=== PATIENT | male | born 1950 | race Caucasian/White ===

== ENCOUNTER 2018-05-11 15:28 | Observation (INO) ==
[2018-05-11] MEDS ORDERED: Acetaminophen 325 MG TABLET PO PRN (20:12)
--- NOTE | 2018-05-11 20:12 | Internal Med History&Physical ---
Date of Encounter: 05/12/18 Time of Encounter: 20:09 Internal Medicine - H&P: HPI Chief complaint: chest pain, R sided numbness Admitted From: Home Plans for Post Hospital Care: Home History of present illness: Mr. Calvillo is a 67 year old male with hx of TIA, hx colon CA, renal calculi who presents with CP and right sided weakness. Pt reports that this morning he developed dizziness. He thought he was hypoglycemic. Ate poptarts and drank coffee and shortly after that he developed CP, radiating to left arm associated with feeling clammy. States he also felt as though his food was coming back up and he felt like he was choking. HE tried taking NTG but felt choking sensation. States NTG did help with CP but then he developed a VIVEROS. Reports all his previous cardiac work up was done here at [facility]. Reported his sympsoms to his but then states he lost track of time. Pt reporting transient moment of loss of time. States one moment he was telling his about his symotpms and and asking her to bring him to the hospital and the next moment he was in the hospital. States she is unsure if he passed out. is not at bedside at this time for questioning. States it was probably about 15 to 20 mins and he does not recall the drive to the ED. He was transferred form [facility] WBC 5.6, hgb 14.4, plt 177. Na 140, K 3.6. BUN 12, Cr 1.16. LFT's wnl INR 2.61. Temp 975. BP 117/78, resp 20, pulse 81 saturaiton 99% on RA. A Past Med Surg Social Fam HX - Past Medical History Medical history: arthritis, COPD, coronary artery disease, GERD, TIA, other Additional medical history: hypoglycemia Psychiatric history: anxiety - Past Surgical History Surgical History: cancer surgery, other Additional surgical history: back and neck, heart cath, kidney stones - Social History Smoking Status: 2nd Hand Smoke Exposure Smokeless Tobacco Status: No Alcohol use: none Drug use: none - Family History Father Living Status: Age at : 78 Cause of : PR Internal Medicine - H&P: Meds Baclofen [Lioresal] 10 mg PO TID PRN 05/12/18 [History] Citalopram [CeleXA] 20 mg PO DAILY 05/12/18 [History] Clopidogrel [Plavix] 75 mg PO DAILY 05/12/18 [History] Meclizine [Antivert] 12.5 mg PO BID PRN 05/12/18 [History] Metoprolol Succinate [Toprol Xl] 25 mg PO DAILY 05/12/18 [History] Nitroglycerin [Nitrostat] 0.4 mg SL Q5M PRN 05/12/18 [History] Ranitidine HCl [Acid Supervisor Weaving] 150 mg PO BID 05/12/18 [History] Topiramate [Topamax] 25 mg PO BID 05/12/18 [History] Warfarin [Coumadin] 2.5 mg PO DAILY 05/12/18 [History] 3 Allergy/AdvReac Type Severity Reaction Status Date / Time aspirin [ASA] Allergy Swelling Verified 10/10/17 12:58 of Lip/Tongue/Throat Penicillins Allergy Swelling Verified 10/10/17 12:58 of Lip/Tongue/Throat hydrocodone [From Vicodin] AdvReac Itching Verified 10/10/17 12:58 All Systems PM: A 10-system review of systems was performed and is negative for pertinent findings except as documented above in the HPI. - Constitutional Vitals: Temp Pulse Resp BP Pulse Ox 97.6 F 66 16 92/61 99 05/11/18 18:56 05/11/18 18:56 05/11/18 18:56 05/11/18 18:56 05/11/18 18:56 General appearance: Present: A&O X 3, no acute distress Exam: . - Head Head exam: Present: atraumatic, normocephalic - Eye Eye exam: Present: PERRL, conjuntiva pink, sclera anicteric Pupils: Present: PERRL - Neck Neck exam general surgery: Present: supple, trachea midline. Absent: lymphadenopathy - Respiratory Respiratory exam: Present: CTAB. Absent: accessory muscle use, rales, rhonchi, wheezes - Cardiovascular Cardiovascular exam: Present: RRR, +S1, +S2. Absent: diastolic murmur, gallop, rubs, systolic murmur - GI/Abdominal GI/Abdominal exam: Present: normal bowel sounds, soft, no peritoneal signs. Absent: distended, tenderness - Extremities Exam Extremities exam: Present: warm, radial pulses palpable and symmetrical. Absent : calf tenderness, cyanotic, pedal edema - Neurological Exam Neurological exam: Present: CN II-XII intact, oriented X3, no focal deficits. 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 Underwent cardiac stress test awaiting results Echo ordered Continue with Plavix. Patient is allergic to aspirin as well as beta shelby and statin Nitroglycerin as needed for chest pain Continuous cardiac monitoring Qualifiers: Chest pain type: unspecified Qualified Code(s): R07.9 - Chest pain, unspecified (2) Right sided weakness Current Visit: Yes Status: Acute Assessment and plan: Brain MRI ordered echocardiogram ordered pending results. Awaiting vascular preliminary. Continue with Plavix as well as statin. Allergy to ASA Neurology has been consulted (3) History of seizure Current Visit: Yes Status: Acute Assessment and plan: sz precaution. EEG ordered. Neuro consulted - Time Spent With Patient Total time spent is greater than 50% in coordination of care (as documented) at patient's floor/unit and/or counseling patient: 25 - 35 minutes
[2018-05-11] MEDS ORDERED: Ondansetron 4 MG/2 ML VIAL IVP PRN (20:13)
[2018-05-11] MEDS ORDERED: Nitroglycerin 0.4 MG TAB.SUBL SL PRN (20:13)
[2018-05-11 21:13] LABS: Basophils % 0.5 %; Eosinophils # 0.1 K/mcL (0.0-0.6); Eosinophils % 1.4 %; Hemoglobin 13.7 g/dL (12.9-16.9); Immature Granulocytes % 0.2 % (0-4); Lymphocytes % 31.4 %; Mean Corpuscular HGB Conc 33.4 g/dL (31.6-35.5); Mean Corpuscular Hemoglobin 30.7 pg (28.0-33.3); Mean Corpuscular Volume 91.9 fL (83.0-100.0); Mean Platelet Volume 10.3 fL (9.4-12.4); Monocytes # 0.6 K/mcL (0.0-1.3); Monocytes % 9.2 %; Neutrophils # 3.6 K/mcL (1.6-8.9); Platelet Count 169 K/mcL (140-400); Red Blood Count 4.46 M/mcL (4.19-5.50); Red Cell Distribution Width 13.8 % (11.5-14.5); Segmented Neutrophils % 57.3 %
[2018-05-11 21:35] LABS: BUN/Creatinine Ratio 11 (6-26); Blood Urea Nitrogen 10 mg/dL (8-23); Calcium 9.3 mg/dL (8.6-10.3); Carbon Dioxide 23 mEq/L (23-29); Chloride 110 mEq/L (98-107); Glucose 96 mg/dL (70-105); Osmolality,Calculated 287 (280-300); Potassium 3.7 mEq/L (3.5-5.1); Sodium 139 mEq/L (136-145); eGFR For Non-African Americans > 60 (> 60)
[2018-05-12 02:14] LABS: Basophils % 0.5 %; Eosinophils # 0.1 K/mcL (0.0-0.6); Eosinophils % 1.6 %; Hematocrit 41.4 % (37.5-50.1); Hemoglobin 13.6 g/dL (12.9-16.9); Immature Granulocytes % 0.2 % (0-4); Lymphocytes # 1.9 K/mcL (0.6-4.6); Lymphocytes % 30.5 %; Mean Corpuscular HGB Conc 32.9 g/dL (31.6-35.5); Mean Corpuscular Hemoglobin 30.7 pg (28.0-33.3); Mean Corpuscular Volume 93.5 fL (83.0-100.0); Mean Platelet Volume 10.1 fL (9.4-12.4); Monocytes # 0.7 K/mcL (0.0-1.3); Monocytes % 11.1 %; Neutrophils # 3.5 K/mcL (1.6-8.9); Platelet Count 170 K/mcL (140-400); Red Blood Count 4.43 M/mcL (4.19-5.50); Red Cell Distribution Width 13.8 % (11.5-14.5); Segmented Neutrophils % 56.1 %
[2018-05-12 02:27] LABS: INR 2.7; Prothrombin Time 30.3 Seconds (9.4-12.1)
[2018-05-12 02:33] LABS: Alanine Aminotransferase 10 Units/L (7-52); Albumin 3.5 g/dL (3.5-5.7); Albumin/Globulin Ratio 1.5 (1.1-2.2); Alkaline Phosphatase 52 Units/L (34-104); Aspartate Amino Transferase 13 Units/L (13-39); BUN/Creatinine Ratio 11 (6-26); Bilirubin,Total 0.3 mg/dL (0.3-1.0); Blood Urea Nitrogen 12 mg/dL (8-23); Calcium 9.2 mg/dL (8.6-10.3); Carbon Dioxide 27 mEq/L (23-29); Chloride 109 mEq/L (98-107); Globulin 2.4 g/dL (2.4-3.5); Glucose 106 mg/dL (70-105); Magnesium 2.1 mg/dL (1.6-2.6); Osmolality,Calculated 290 (280-300); Potassium 4.2 mEq/L (3.5-5.1); Sodium 140 mEq/L (136-145); Total Protein 5.9 g/dL (6.4-8.9); eGFR For Non-African Americans > 60 (> 60)
[2018-05-12 02:34] LABS: Chol/HDL Ratio 3.1 (0-4.9); Cholesterol 150 mg/dL (< 200); HDL Cholesterol 48 mg/dL (40-59); LDL Cholesterol,Calculated 82 mg/dL (0-99); Triglycerides 102 mg/dL (< 150)
[2018-05-12 02:35] LABS: Troponin I < 0.03 ng/mL (< 0.04)
--- NOTE | 2018-05-12 10:39 | Internal Med Progress Note ---
Hospitalist Progress Note - Encounter Date of Encounter: 05/12/18 Time of Encounter: 10:39 - Exam Vitals: Temp Pulse Resp BP Pulse Ox 97.9 F 58 19 114/69 100 05/12/18 07:44 05/12/18 07:44 05/12/18 07:44 05/12/18 07:44 05/12/18 07:44 Exam: General appearance: Present: A&O X 3, no acute distress Exam: - Head Head exam: Present: atraumatic, normocephalic - Eye Eye exam: Present: PERRL, conjuntiva pink, sclera anicteric Pupils: Present: PERRL - Neck Neck exam general surgery: Present: supple, trachea midline. Absent: lymphadenopathy - Respiratory Respiratory exam: Present: CTAB. Absent: accessory muscle use, rales, rhonchi, wheezes - Cardiovascular Cardiovascular exam: Present: RRR, +S1, +S2. Absent: diastolic murmur, gallop, rubs, systolic murmur - GI/Abdominal GI/Abdominal exam: Present: normal bowel sounds, soft, no peritoneal signs. Absent: distended, tenderness - Extremities Exam Extremities exam: Present: warm, radial pulses palpable and symmetrical. Absent : calf tenderness, cyanotic, pedal edema - Neurological Exam Neurological exam: Present: CN II-XII intact, oriented X3, no focal deficits. Absent: pronater drift, facial droop, speech deficit - Skin Skin exam: Present: dry, intact - Assessment and Plan (1) Chest pain Current Visit: Yes Status: Acute Assessment and Plan: Presented after experiencing midsternal chest pain nausea diaphoresis and lightheadedness. He also had right-sided facial numbness. 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 Underwent cardiac stress test awaiting results Echo has been completed-pending results Consult cardiology as needed Continue with Plavix patient is allergic to aspirin as well as beta shelby and statin Nitroglycerin as needed for chest pain Continuous cardiac monitoring (2) Right sided weakness Current Visit: Yes Status: Acute Assessment and Plan: 1 he is currently back to baseline however does continue to complain of right- sided facial numbness tingling. Brain MRI ordered echocardiogram ordered pending results. Awaiting vascular preliminary. Continue with Plavix as well as statin Neurology has been consulted (3) History of seizure Current Visit: Yes Status: Acute Assessment and Plan: Pt reporting transient moment of loss of time. States one moment he was telling his about his symotpms and and asking her to bring him to the hospital and the next moment he was in the hospital. States she is unsure if he passed out. is not at bedside at this time for questioning. States it was probably about 15 to 20 mins and he does not recall the drive to the ED. 05/12-neurology has been consulted awaiting recommendations. Continue with Topamax awaiting EEG Continuous seizure precautions DVT Prophylaxis: Anticoagulated on Coumadin - Time Spent with Patient Total time spent is greater than 50% in coordination of care (as documented) at patient's floor/unit and/or counseling patient: Internal Medicine: Result - Labs CBC & Chem 7: 05/12/18 01:58 05/12/18 01:58 Labs: Short CBC 05/11/18 05/12/18 Range/Units 20:46 01:58 WBC 6.2 6.2 (4.3-11.1) K/mcL Hgb 13.7 13.6 (12.9-16.9) g/dL Hct 41.0 41.4 (37.5-50.1) % Plt Count 169 170 (140-400) K/mcL Neutrophils # 3.6 3.5 (1.6-8.9) K/mcL BMP 05/11/18 05/12/18 20:46 01:58 Sodium 139 140 Potassium 3.7 4.2 Chloride 110 H 109 H Carbon Dioxide 23 27 BUN 10 12 Creatinine 0.95 1.11 Glucose 96 106 H Calcium 9.3 9.2 Cardiac Enzymes 05/11/18 05/12/18 Range/Units 20:46 01:58 Troponin I < 0.03 < 0.03 (< 0.04) ng/mL Liver Function 05/12/18 Range/Units 01:58 Total Bilirubin 0.3 (0.3-1.0) mg/dL AST 13 (13-39) Units/L ALT 10 (7-52) Units/L Alkaline Phosphatase 52 (34-104) Units/L Albumin 3.5 (3.5-5.7) g/dL - ABG Interpretation ABG results: PT/INR, D-dimer PT 30.3 Seconds (9.4-12.1) H 05/12/18 01:58 Consult Discharge Plan - Plan Referrals: Dayanna Oh, MICHAEL [Primary Care Provider] - (1) Chest pain Qualifiers: Chest pain type: unspecified Qualified Code(s): R07.9 - Chest pain, unspecified
[2018-05-12] MEDS ORDERED: Nitroglycerin 0.4 MG TAB.SUBL SL PRN (13:37)
[2018-05-12] MEDS ORDERED: *HR* Warfarin 2.5 MG TABLET PO SCH (18:00)
[2018-05-12] MEDS ORDERED: Warfarin perPT PO PRN (18:00)
--- NOTE | 2018-05-12 18:22 | Neurology - Consult Note ---
Date of Encounter: 05/12/18 Time of Encounter: 18:21 Assessment and Plan (1) Dizziness, nonspecific Current Visit: Yes Status: Acute Patient experienced a host of different symptoms prior to admission that I am not able to definitely attributed to a central nervous system process. He did have complaints of right-sided paresthesias. However MRI scan of the brain does not reveal evidence of left-sided ischemia. His blood pressure was 92/61 upon arrival. Perhaps he was presyncopal. He had another of vague generalized symptoms but nothing with any localizing value from a neurologic perspective. I would recommend that we maintain his Topamax 25 mg 2 at bedtime. I will review his EEG study tomorrow. Echocardiogram is pending as well. I would simply recommend maintaining his home medications as they are currently which included his antihypertensives, lipid-lowering agents, Plavix and warfarin. I will reassess him again tomorrow. Recommend maintaining neuro checks per protocol. History of Present Illness HPI: Mr. Calvillo is a 67 year old male who was known to me from my office clinic for essential tremors. However he is hospitalized now secondary to symptoms of chest discomfort, dizziness as well as right face and arm and leg numbness. He states symptoms onset Friday which was yesterday. He felt sick and he also felt generalized weakness. States she felt clammy. He feels much better today. He initially went to [facility] and was transferred here for further assessment. Troponins have been negative 3, carotid Doppler study revealed nonstenotic plaquing. Apparently echocardiogram has been completed and results are pending. MRI scan of the brain has been completed. There is no diffusion deficit to suggest acute infarct. Nonspecific deep matter hyperintensities are identified. Otherwise the MRI was normal. Upon arrival his blood pressure was 92/61 and pulse was 66. 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 However he is had no seizures in 20 years. He takes Topamax 25 mg 2 at bedtime that I prescribed to treat his essential tremors which is helping. Currently he is alert and oriented and comfortable in his bed. Past Med Surg Social Fam HX - Past Medical History Medical history: arthritis, COPD, coronary artery disease, GERD, TIA, other Additional medical history: hypoglycemia Psychiatric history: anxiety - Past Surgical History Surgical History: cancer surgery, other Additional surgical history: back and neck, heart cath, kidney stones - Social History Smoking Status: 2nd Hand Smoke Exposure Smokeless Tobacco Status: No Alcohol use: none Drug use: none - Family History Father Living Status: Age at : 78 Cause of : [place] Medications and Allergies Baclofen [Lioresal] 10 mg PO TID PRN 05/12/18 [History] Citalopram [CeleXA] 20 mg PO DAILY 05/12/18 [History] Clopidogrel [Plavix] 75 mg PO DAILY 05/12/18 [History] Meclizine [Antivert] 12.5 mg PO BID PRN 05/12/18 [History] Metoprolol Succinate [Toprol Xl] 25 mg PO DAILY 05/12/18 [History] Nitroglycerin [Nitrostat] 0.4 mg SL Q5M PRN 05/12/18 [History] Ranitidine HCl [Acid Supervisor Poultry [employer]chery] 150 mg PO BID 05/12/18 [History] Topiramate [Topamax] 25 mg PO BID 05/12/18 [History] Warfarin [Coumadin] 2.5 mg PO DAILY 05/12/18 [History] 3 Allergy/AdvReac Type Severity Reaction Status Date / Time aspirin [ASA] Allergy Swelling Verified 10/10/17 12:58 of Lip/Tongue/Throat Penicillins Allergy Swelling Verified 10/10/17 12:58 of Lip/Tongue/Throat hydrocodone [From Vicodin] AdvReac Itching Verified 10/10/17 12:58 All Systems: The remainder of the systems were reviewed and are negative Review of Systems: The balance of the systems review is negative. Physical Examination - Vital Signs Vital Signs: Initial Vital Signs Temp Pulse Resp BP Pulse Ox 97.6 F 58 17 130/78 100 05/11/18 17:38 05/11/18 17:38 05/11/18 17:38 05/11/18 17:38 05/11/18 17:38 - Neurologic Detailed motor examination: full strength in all major muscle groups Motor examination - right side: 5/5: deltoids, biceps, triceps, wrist flexion, wrist extension, manager of loss prevention operations, hip flexors, tibialis Anterior, quadriceps, toe extension (EHL), plantarflexion Motor examination - left side: 5/5: deltoids, biceps, triceps, wrist flexion, wrist extension, hip flexors, manager of loss prevention operations, quadriceps, tibialis Anterior, toe extension (EHL), plantarflexion Mental Status Examination: awake, alert, oriented to person, oriented to place, oriented to time, follows commands appropriately, answers questions appropriately, no agnosia, no aphasia, no aproxia Cranial nerve examination: PERRL, EOMI, visual swan intact, corneal reflexes brisk symmetrically, sensory to face intact, mastication intact, no facial asymmetry is present, no dysarthria, hearing is intact symmetrically, soft palate elevates bilaterally upon phonation, gag reflex intact, flexes SCM and trapezius muscles symmetrically with full power, tongue protrudes midline, no atrophy or facial fasiculations present Cerebellar examination: no dysmetria, performs finger to nose and heel to chavez symmetrically without ataxia, no gait ataxia, no truncal ataxia, no difficulty with rapid alternating movements Results - Laboratory Findings CBC and BMP: 05/12/18 01:58 05/12/18 01:58 Abnormal lab findings: Abnormal lab results PT 30.3 Seconds (9.4-12.1) H 05/12/18 01:58 Chloride 109 mEq/L (98-107) H 05/12/18 01:58 Glucose 106 mg/dL (70-105) H 05/12/18 01:58 Serum Total Protein 5.9 g/dL (6.4-8.9) L 05/12/18 01:58 Consult Discharge Plan - Plan Referrals: Triny Victor MD [Partnered Physician] - 06/05/18 9:15 am Dayanna Oh CNP [Primary Care Provider] -
--- NOTE | 2018-05-12 18:41 | EEG/EMG/Oth Biometrics Report ---
EEG Procedure Report Date of procedure: 05/12/18 EEG Procedure: Routine EEG Procedure Note: This is a report of a 21 channel bipolar and referential montage EEG. A posterior dominant rhythm consists of low-voltage beta frequencies. This rhythm attenuates symmetrically with eye opening. Hyperventilation is not performed in recording. There is no sleep architecture identified during the study. Photic stimulations performed and does not produce a symmetric driving response. The EKG rhythm strip reveals sinus bradycardia at 54 bpm. Impressions: This EEG recording is within normal limits. There is no evidence of epileptiform activity identified during the study. Comment: A normal EEG does not preclude a diagnosis of seizure or epilepsy. If the clinical suspicion for seizure activity is high, serial EEGs or perhaps a prolonged recording may increase the yield. Beta frequencies are indeed recognized as a normal variant however may also be reflective of a host of metabolic conditions, anxiety and medication effect. Also sinus bradycardia is identified during the study. Please correlate clinically.
--- NOTE | 2018-05-12 19:14 | Electrocardiograph Report ---
[place] [id number] Test Date: 2018-05-12 Pat Name: Lorrie Calvillo Department: 113 Room: 3B Gender: M [place] Attendant: VICKY : 1950 Requested By: Ketty Richardson Order Number: [id number] Reading MD: Glenn Chaves Measurements Intervals [place] Rate: 53 P: 42 KS: 149 QRS: 44 QRSD: 111 T: 45 QT: 426 QTc: 408 Interpretive Statements SINUS BRADYCARDIA IVCD Electronically Signed On 05-12-2018 19:12:47 EDT by Glenn Chaves
[2018-05-12] MEDS: Topiramate 25 MG TABLET PO SCH (22:04)
[2018-05-13 04:55] LABS: INR 2.3; Prothrombin Time 26.3 Seconds (9.4-12.1)
[2018-05-13 05:04] LABS: BUN/Creatinine Ratio 19 (6-26); Basophils % 0.5 %; Blood Urea Nitrogen 19 mg/dL (8-23); Calcium 9.8 mg/dL (8.6-10.3); Carbon Dioxide 25 mEq/L (23-29); Chloride 108 mEq/L (98-107); Eosinophils # 0.1 K/mcL (0.0-0.6); Eosinophils % 1.5 %; Glucose 110 mg/dL (70-105); Hematocrit 44.7 % (37.5-50.1); Hemoglobin 14.6 g/dL (12.9-16.9); Immature Granulocytes % 1.1 % (0-4); Lymphocytes # 2.2 K/mcL (0.6-4.6); Lymphocytes % 33.3 %; Mean Corpuscular HGB Conc 32.7 g/dL (31.6-35.5); Mean Corpuscular Hemoglobin 31.1 pg (28.0-33.3); Mean Corpuscular Volume 95.1 fL (83.0-100.0); Mean Platelet Volume 10.9 fL (9.4-12.4); Monocytes # 0.7 K/mcL (0.0-1.3); Monocytes % 10.9 %; Neutrophils # 3.5 K/mcL (1.6-8.9); Osmolality,Calculated 289 (280-300); Platelet Count 171 K/mcL (140-400); Red Cell Distribution Width 13.8 % (11.5-14.5); Segmented Neutrophils % 52.7 %; Sodium 138 mEq/L (136-145); eGFR For Non-African Americans > 60 (> 60)
[2018-05-13] MEDS ORDERED: Metoprolol XL (24 HR) Succ 25 MG TAB.ER.24H PO SCH (09:00)
[2018-05-13] MEDS: Topiramate 25 MG TABLET PO SCH (09:05)
--- NOTE | 2018-05-13 10:56 | Neurology Progress Note ---
Date of Encounter: 05/13/18 Time of Encounter: 10:53 Assessment and Plan (1) Dizziness, nonspecific Current Visit: Yes Status: Acute At this juncture I am unable to identify any specific central nervous system process that would explain the symptoms leading up to his admission. No evidence of stroke or cerebral ischemia are present. EEG was normal I am doubtful of seizure activity. One consideration may be the metoprolol. His blood pressure and pulse have been on the low side for the duration of his admission. Otherwise I will reevaluate him at your request. Consider cardiac evaluation or at least echocardiogram. Subjective Interval history: Chart review, patient seen and examined. He has no acute distress. In fact he is anxious for discharge and threatening to leave AMA. Denies any further symptoms of dizziness, numbness or paresthesias or weakness. Neurologic workup has been negative. EEG was negative, MRI was negative. Carotid Doppler was negative. Not certain that an echocardiogram has been ordered. His blood pressure and pulse had been on the low side for the duration of his admission. Objective - Constitutional Vitals: Temp Pulse Resp BP Pulse Ox 97.9 F 68 18 120/78 98 05/13/18 07:44 05/13/18 07:44 05/13/18 07:44 05/13/18 07:44 05/13/18 07:44 - Neurological Exam Motor Examination: Present: full strength in all major muscle groups Motor examination - right side: 5/5: deltoids, biceps, triceps, wrist flexion, wrist extension, test clerk, hip flexors, tibialis Anterior, quadriceps, toe extension (EHL), plantarflexion Motor examination - left side: 5/5: deltoids, biceps, triceps, wrist flexion, wrist extension, hip flexors, test clerk, quadriceps, tibialis Anterior, toe extension (EHL), plantarflexion Sensation intact: Present: intact Mental Status Examination: Present: awake, alert, oriented to person, oriented to place, oriented to time, follows commands appropriately, answers questions appropriately, no agnosia, no aphasia, no aproxia Cranial nerve examination: Present: PERRL, EOMI, visual swan intact, corneal reflexes brisk symmetrically, sensory to face intact, mastication intact, no facial asymmetry is present, no dysarthria, hearing is intact symmetrically, soft palate elevates bilaterally upon phonation, gag reflex intact, flexes SCM and trapezius muscles symmetrically with full power, tongue protrudes midline, no atrophy or facial fasiculations present Cerebellar examination: Present: no dysmetria, performs finger to nose and heel to chavez symmetrically without ataxia, no gait ataxia, no truncal ataxia, no difficulty with rapid alternating movements Results - Laboratory Findings CBC and BMP: 05/13/18 03:59 05/13/18 03:59 Abnormal lab findings: Abnormal lab results PT 26.3 Seconds (9.4-12.1) H 05/13/18 03:59 Chloride 108 mEq/L (98-107) H 05/13/18 03:59 Glucose 110 mg/dL (70-105) H 05/13/18 03:59 Serum Total Protein 5.9 g/dL (6.4-8.9) L 05/12/18 01:58 Consult Discharge Plan - Plan Referrals: Triny Victor MD [Partnered Physician] - 06/05/18 9:15 am Dayanna Oh CNP [Primary Care Provider] -
--- NOTE | 2018-05-13 14:42 | Discharge Summary ---
- NOTES TO OUTPATIENT PROVIDER Notes to Outpatient Provider: Decrease metoprolol down to 12.5 due to hypotension-advised to follow up with cardiology Orders not resulted at time of discharge: Pending orders 05/12/18 04:00 Urinalysis reflex Microscopic [URIN] AM 0400 05/14/18 04:00 INR/PT [Prothrombin Time INR] [COAG] AM 0400 05/15/18 04:00 INR/PT [Prothrombin Time INR] [COAG] AM 0400 05/16/18 04:00 INR/PT [Prothrombin Time INR] [COAG] AM 0400 05/17/18 04:00 INR/PT [Prothrombin Time INR] [COAG] AM 0400 Date of Encounter: 05/13/18 Time of Encounter: 14:39 - Discharge Diagnosis (1) Chest pain Priority: Primary Status: Acute Qualifiers: Chest pain type: unspecified Qualified Code(s): R07.9 - Chest pain, unspecified (2) Right sided weakness Priority: Primary Status: Acute (3) History of seizure Priority: Secondary Status: Acute Hospital course: Mr. Calvillo is a 67 year old male past medical history of TIA colon cancer renal calculi presented with chest pain and right-sided weakness as well as right facial numbness. Patient developed dizziness and he thought he was hypoglycemic and he did try to eat and drink some coffee he noted that he had developed chest pain radiating to his left arm he felt clammy. [place] nauseous and felt like he was choking. He did complete take a nitroglycerin did not help. He also experienced right-sided facial numbness he did lose track of some time and requested his to bring him to the emergency department. He did present to [facility] emergency department and was transferred to [facility] for further workup possible stroke. MRI without any acute infarct or intracranial process carotid duplex with nonstenotic plaque EEG completed no evidence of epileptiform activity identified during the study. Neurology was consulted no evidence of stroke or cerebral ischemia is present no seizure activity. Troponins have been negative EKG with no ST-T wave abnormalities -orthostatic vital signs are negative. Blood sugars have been stable He did have some hypotension as well as heart rate 50-60 and patient is on metoprolol. Patient did verbalize during assessment regardless of results of workup he is leaving today. Patient does see cardiology I did perform curbside with cardiology since cardiology workup has been negative we will have patient follow up with cardiology as outpatient continuing with decreased metoprolol. Advised patient to follow up with cardiology as well as primary care provider since this provider Leonarda and can adjust medications accordingly. Patient verbalized understanding he is here today for stable and ready for discharge. Discharge discussed with: patient - Time Spent with Patient Total time spent providing and/or coordinating discharge services: - Discharge Medications Prescriptions: Metoprolol XL (24 HR) Succ [Toprol Xl] 12.5 mg PO DAILY #30 tab.er.24h Home Medications: Baclofen [Lioresal] 10 mg PO TID PRN 05/12/18 [History] Citalopram [CeleXA] 20 mg PO DAILY 05/12/18 [History] Clopidogrel [Plavix] 75 mg PO DAILY 05/12/18 [History] Meclizine [Antivert] 12.5 mg PO BID PRN 05/12/18 [History] Nitroglycerin [Nitrostat] 0.4 mg SL Q5M PRN 05/12/18 [History] Ranitidine HCl [Acid [employer]] 150 mg PO BID 05/12/18 [History] Topiramate [Topamax] 25 mg PO BID 05/12/18 [History] Warfarin [Coumadin] 2.5 mg PO DAILY 05/12/18 [History] Metoprolol XL (24 HR) Succ [Toprol Xl] 12.5 mg PO DAILY #30 tab.er.24h 05/13/18 [Rx] Allergies/Adverse Reactions: 3 Allergy/AdvReac Type Severity Reaction Status Date / Time aspirin [ASA] Allergy Swelling Verified 10/10/17 12:58 of Lip/Tongue/Throat Penicillins Allergy Swelling Verified 10/10/17 12:58 of Lip/Tongue/Throat hydrocodone [From Vicodin] AdvReac Itching Verified 10/10/17 12:58 Date of admission: 05/11/18 17:26 Primary care physician: Dayanna Oh CNP Consults: 05/11/18 22:02 Consult to Neurology [CONS] Routine Consulting Provider: [facility] Reason for Consult: syncope Call Completed: No 05/12/18 10:34 Consult to Interpret Exam [CONS] Routine Consulting Provider: Johnathon Perkins Consult to Interpret Exam: Interpret EEG Discharging clinician: Ketty Richardson Anticipated date of discharge: 05/13/18 - Constitutional Vitals: Temp Pulse Resp BP Pulse Ox 98.2 F 67 18 103/70 97 05/13/18 11:56 05/13/18 11:56 05/13/18 11:56 05/13/18 11:56 05/13/18 11:56 General appearance: Present: A&O X 3, no acute distress Exam: . - Head Head exam: Present: atraumatic, normocephalic - Eye Eye exam: Present: PERRL, conjuntiva pink, sclera anicteric Pupils: Present: PERRL - Neck Neck exam general surgery: Present: supple, trachea midline. Absent: lymphadenopathy - Respiratory Respiratory exam: Present: CTAB. Absent: accessory muscle use, rales, rhonchi, wheezes - Cardiovascular Cardiovascular exam: Present: RRR, +S1, +S2. Absent: diastolic murmur, gallop, rubs, systolic murmur - GI/Abdominal GI/Abdominal exam: Present: normal bowel sounds, soft, no peritoneal signs. Absent: distended, tenderness - Extremities Exam Extremities exam: Present: warm, radial pulses palpable and symmetrical. Absent : calf tenderness, cyanotic, pedal edema - Neurological Exam Neurological exam: Present: CN II-XII intact, oriented X3, no focal deficits. Absent: pronater drift, facial droop, speech deficit - Skin Skin exam: Present: dry, intact - Patient Status Disposition: Home, Self-Care Condition: Good Overall status at discharge: patient is back to baseline - Discharge Instructions Follow Up With: Triny Victor MD [Partnered Physician] - 06/05/18 9:15 am Dayanna Oh CNP [Primary Care Provider] - - Diet and Activity Activity: resume usual activities as tolerated Diet: advance to your usual diet
[2018-05-13 15:01] VITALS: BP 101/62
[2018-05-14] MEDS ORDERED: Metoprolol XL (24 HR) Succ 25 MG TAB.ER.24H PO SCH (09:00)
== END 2018-05-13 15:55 | disposition home or self-care (01) ==
LOC: 3BNU
PROVIDERS: ADMIT Internal Medicine; ATTEND Internal Medicine

== ENCOUNTER 2019-06-19 14:21 | Observation (INO) ==
[2019-06-19 15:21] LABS: Hematocrit 42.2 % (37.5-50.1); Hemoglobin 14.4 g/dL (12.9-16.9); Immature Platelets 2.8 % (1.1-6.1); Mean Corpuscular HGB Conc 34.1 g/dL (31.6-35.5); Mean Corpuscular Hemoglobin 31.4 pg (28.0-33.3); Mean Corpuscular Volume 91.9 fL (83.0-100.0); Mean Platelet Volume 9.7 fL (9.4-12.4); Red Blood Count 4.59 M/mcL (4.19-5.50); Red Cell Distribution Width 12.9 % (11.5-14.5); White Blood Count 7.9 K/mcL (4.3-11.1)
[2019-06-19 15:31] LABS: INR 2.6; Prothrombin Time 29.3 Seconds (9.4-12.1)
[2019-06-19 15:33] LABS: Activated Partial Thrombo Time 40.8 Seconds (26.0-36.0)
[2019-06-19 15:45] LABS: BUN/Creatinine Ratio 16 (6-26); Blood Urea Nitrogen 15 mg/dL (8-23); Calcium 8.8 mg/dL (8.6-10.3); Carbon Dioxide 26 mEq/L (23-29); Chloride 106 mEq/L (98-107); Glucose 104 mg/dL (70-105); Osmolality,Calculated 285 (280-300); Potassium 3.7 mEq/L (3.5-5.1); Sodium 137 mEq/L (136-145); Troponin I < 0.03 ng/mL (< 0.04); eGFR For African Americans > 60 (> 60); eGFR For Non-African Americans > 60 (> 60)
[2019-06-19] MEDS ORDERED: *HR* Labetalol 20 MG/4 ML SYRINGE IVP PRN (17:01)
[2019-06-19] MEDS ORDERED: *HR* OxyCODONE/APAP 5/325 TABLET PO ONE (17:01)
[2019-06-19] MEDS ORDERED: Naloxone 0.4 MG/ML INJ IVP PRN (17:06)
[2019-06-19] MEDS ORDERED: Acetaminophen 325 MG TABLET PO PRN (17:06)
[2019-06-19] MEDS ORDERED: hydrOXYzine pamoate 25 MG CAPSULE PO PRN (17:55)
[2019-06-19] MEDS ORDERED: Warfarin perPT PO PRN (18:00)
[2019-06-19] MEDS ORDERED: *HR* Warfarin 2.5 MG TABLET PO ONE (18:28)
[2019-06-19] MEDS: Budesonide/Formoterol 160/4.5 1 PUFF INH IH SCH (20:44)
[2019-06-19] MEDS: *HR* OxyCODONE/APAP 5/325 TABLET PO PRN (21:50)
[2019-06-20] MEDS: *HR* OxyCODONE/APAP 5/325 TABLET PO PRN (03:25)
[2019-06-20 08:07] VITALS: BP 117/77
[2019-06-20] MEDS: Budesonide/Formoterol 160/4.5 1 PUFF INH IH SCH (08:17)
[2019-06-20 08:21] LABS: Amphetamine Screen,Urine Negative ng/mL (Cutoff=1000); Barbiturate Screen,Urine Negative ng/mL (Cutoff=200); Benzodiazepines Screen,Urine Negative ng/mL (Cutoff=200); Cannabinoid Screen,Urine Negative ng/mL (Cutoff = 50); Cocaine Screen,Urine Negative ng/mL (Cutoff= 300); Opiate Screen,Urine Negative ng/mL (Cutoff=300); Phencyclidine Screen,Urine Negative ng/mL (Cutoff=25)
[2019-06-20] MEDS ORDERED: Nitroglycerin 0.4 MG TAB.SUBL SL PRN (08:54)
[2019-06-20] MEDS ORDERED: Pregabalin 50 MG CAPSULE PO SCH (09:00)
[2019-06-20] MEDS ORDERED: Metoprolol XL (24 HR) Succ 25 MG TAB.ER.24H PO SCH (09:00)
[2019-06-20] MEDS ORDERED: Loratadine 10 MG TABLET PO SCH (09:00)
[2019-06-20] MEDS ORDERED: Tiotropium 18 MCG inhalation IH SCH (10:00)
[2019-06-20] MEDS ORDERED: *HR* Warfarin 5 MG TABLET PO SCH (18:00)
== END 2019-06-20 10:58 | disposition home or self-care (01) ==
LOC: EMEROOARM 14:21 → 3BNU 14:21 → SUATTDRO 18:24 → 3BNU 18:50
PROVIDERS: ADMIT Internal Medicine; ATTEND Internal Medicine

== ENCOUNTER 2019-08-23 00:51 | Observation (INO) ==
[2019-08-23] MEDS ORDERED: Naloxone 0.4 MG/ML INJ IVP PRN (02:42)
[2019-08-23] MEDS ORDERED: *HR* OxyCODONE/APAP 5/325 TABLET PO PRN (02:45)
[2019-08-23] MEDS ORDERED: Nitroglycerin 0.4 MG TAB.SUBL SL PRN (02:45)
[2019-08-23] MEDS ORDERED: Ipratropium/Albuterol Neb 3 ML IH PRN (02:46)
[2019-08-23 03:35] LABS: Basophils % 0.3 %; Eosinophils % 0.4 %; Hematocrit 41.1 % (37.5-50.1); Hemoglobin 13.4 g/dL (12.9-16.9); Immature Granulocytes % 0.3 % (0-4); Lymphocytes # 1.4 K/mcL (0.6-4.6); Lymphocytes % 18.2 %; Mean Corpuscular HGB Conc 32.6 g/dL (31.6-35.5); Mean Corpuscular Hemoglobin 30.3 pg (28.0-33.3); Mean Platelet Volume 10.5 fL (9.4-12.4); Monocytes # 0.7 K/mcL (0.0-1.3); Neutrophils # 5.3 K/mcL (1.6-8.9); Platelet Count 181 K/mcL (140-400); Red Blood Count 4.42 M/mcL (4.19-5.50); Red Cell Distribution Width 13.5 % (11.5-14.5); Segmented Neutrophils % 70.8 %; White Blood Count 7.4 K/mcL (4.3-11.1)
[2019-08-23] MEDS ORDERED: Dextrose Gel 15 GM/37.5 ML TUBE PO PRN ×2 (03:41)
[2019-08-23] MEDS ORDERED: *HR* Dextrose 50 % in Water (Syg) 50 ML SYRINGE IVP PRN (03:41)
[2019-08-23] MEDS ORDERED: D5% in Water 1,000 ML IVC PRN (03:41)
[2019-08-23 03:42] LABS: INR 2.2; Prothrombin Time 25.3 Seconds (9.4-12.1)
[2019-08-23 03:45] LABS: Activated Partial Thrombo Time 38.5 Seconds (26.0-36.0); Alanine Aminotransferase 12 Units/L (7-52); Albumin 3.6 g/dL (3.5-5.7); Albumin/Globulin Ratio 1.4 (1.1-2.2); Alkaline Phosphatase 59 Units/L (34-104); Aspartate Amino Transferase 14 Units/L (13-39); BUN/Creatinine Ratio 17 (6-26); Bilirubin,Total 0.2 mg/dL (0.3-1.0); Blood Urea Nitrogen 18 mg/dL (8-23); Carbon Dioxide 27 mEq/L (23-29); Chloride 107 mEq/L (98-107); Cholesterol 155 mg/dL (< 200); Globulin 2.5 g/dL (2.4-3.5); Glucose 132 mg/dL (70-105); HDL Cholesterol 52 mg/dL (40-59); LDL Cholesterol,Calculated 86 mg/dL (0-99); Magnesium 1.9 mg/dL (1.6-2.6); Osmolality,Calculated 292 (280-300); Phosphorous 3.2 mg/dL (2.7-4.5); Potassium 4.2 mEq/L (3.5-5.1); Sodium 139 mEq/L (136-145); Total Protein 6.1 g/dL (6.4-8.9); Triglycerides 83 mg/dL (< 150); eGFR For African Americans > 60 (> 60); eGFR For Non-African Americans > 60 (> 60)
[2019-08-23] MEDS ORDERED: D5% in 0.9% NACL 1,000 ML IVC SCH (03:45)
[2019-08-23] MEDS ORDERED: Insulin LISPRO 300 UNITS/3 ML VIAL SQ SCH (06:00)
[2019-08-23] MEDS ORDERED: Regadenoson 0.4 MG/5 ML SYRINGE IVP ONE (06:38)
[2019-08-23] MEDS ORDERED: Metoprolol XL (24 HR) Succ 25 MG TAB.ER.24H PO SCH (09:00)
[2019-08-23] MEDS ORDERED: Pregabalin 50 MG CAPSULE PO SCH (09:00)
[2019-08-23] MEDS ORDERED: Budesonide/Formoterol 160/4.5 1 PUFF INH IH SCH (10:00)
[2019-08-23 11:05] VITALS: BP 129/86
[2019-08-23] MEDS ORDERED: *HR* Warfarin 2.5 MG TABLET PO ONE (18:00)
[2019-08-23] MEDS ORDERED: Warfarin perPT PO SCH (18:00)
== END 2019-08-23 14:25 | disposition home or self-care (01) ==
LOC: 3NENU
PROVIDERS: ADMIT Internal Medicine; ATTEND Internal Medicine

== ENCOUNTER 2021-03-30 12:01 | Observation (INO) ==
[2021-03-30] MEDS ORDERED: Aspirin 81 MG TAB.CHEW PO ONE (12:20)
[2021-03-30 12:30] LABS: Hematocrit 42.3 % (37.5-50.1); Hemoglobin 13.5 g/dL (12.9-16.9); Mean Corpuscular HGB Conc 31.9 g/dL (31.6-35.5); Mean Corpuscular Hemoglobin 30.1 pg (28.0-33.3); Mean Corpuscular Volume 94.4 fL (83.0-100.0); Mean Platelet Volume 10.2 fL (9.4-12.4); Platelet Count 214 K/mcL (140-400); Red Blood Count 4.48 M/mcL (4.19-5.50); Red Cell Distribution Width 13.8 % (11.5-14.5); White Blood Count 5.9 K/mcL (4.3-11.1)
[2021-03-30 12:41] LABS: INR 2.4; Prothrombin Time 27.1 Seconds (9.4-12.1)
[2021-03-30] MEDS ORDERED: Isovue-370 500 ML BOTTLE IVP ONE (12:42)
[2021-03-30 12:43] LABS: Activated Partial Thrombo Time 41.5 Seconds (26.0-36.0)
[2021-03-30 13:20] LABS: Alanine Aminotransferase 17 Units/L (7-52); Albumin 3.5 g/dL (3.5-5.7); Albumin/Globulin Ratio 1.3 (1.1-2.2); Alkaline Phosphatase 61 Units/L (34-104); Aspartate Amino Transferase 20 Units/L (13-39); BUN/Creatinine Ratio 10 (6-26); Bilirubin,Indirect 0.4 mg/dL (0.0-1.0); Bilirubin,Total 0.4 mg/dL (0.3-1.0); Blood Urea Nitrogen 11 mg/dL (8-23); Calcium 8.8 mg/dL (8.6-10.3); Carbon Dioxide 21 mEq/L (23-29); Chloride 108 mEq/L (98-107); Globulin 2.6 g/dL (2.4-3.5); Glucose 137 mg/dL (70-105); Osmolality,Calculated 286 (280-300); Potassium 4.2 mEq/L (3.5-5.1); Sodium 137 mEq/L (136-145); Total Protein 6.1 g/dL (6.4-8.9); Troponin I < 0.03 ng/mL (< 0.04); eGFR For African Americans > 60 (> 60); eGFR For Non-African Americans > 60 (> 60)
[2021-03-30 17:28] LABS: Influenza A PCR Negative (Negative); Influenza B PCR Negative (Negative); Resp. Syncytial Virus PCR Negative (Negative)
[2021-03-30] MEDS ORDERED: Melatonin 3 MG TABLET PO PRN (17:45)
[2021-03-30] MEDS ORDERED: Naloxone 0.4 MG/ML INJ IVP PRN (17:45)
[2021-03-30 17:52] LABS: SARS-CoV-2 by PCR (In House) Negative (Negative)
[2021-03-30] MEDS ORDERED: Nitroglycerin 1 INCH/GM PACKET TP PRN (18:19)
[2021-03-30 18:35] LABS: Bilirubin,Urine Negative (Negative); Blood,Urine Negative (Negative); Clarity,Urine Clear (Clear); Color,Urine Light-Yellow (Yellow); Glucose,Urine (UA) Normal (Normal); Ketones,Urine Negative (Negative); Leukocyte Esterase,Urine Negative (Negative); Nitrite,Urine Negative (Negative); Protein,Urine Negative (Neg-Trace); Specific Gravity,Urine 1.014 (1.010-1.025); Urobilinogen,Urine Normal (Normal)
[2021-03-31 01:00] VITALS: O2SAT 95
[2021-03-31 07:34] VITALS: BP 125/85; PULSE 103; TEMP 98.6
[2021-03-31] MEDS ORDERED: Pregabalin 50 MG CAPSULE PO SCH (09:00)
[2021-03-31] MEDS ORDERED: Metoprolol XL (24 HR) Succ 25 MG TAB.ER.24H PO SCH (09:00)
[2021-03-31] MEDS ORDERED: Budesonide/Formoterol 160/4.5 1 PUFF INH IH SCH (10:00)
[2021-04-01] MEDS ORDERED: Cholecalciferol (D-3) 1,000 UNIT (25MCG) TABLET PO SCH (09:00)
== END 2021-03-31 11:50 | disposition home or self-care (01) ==
LOC: 3NENU 12:01 → EMEROOARM 12:01 → SUATTDRO 16:57 → 3NENU 18:30
PROVIDERS: ADMIT Student in an Organized Health Care Education/Training Program; ATTEND Internal Medicine

== ENCOUNTER 2021-04-18 12:15 | Inpatient (IN) ==
[2021-04-18 13:03] LABS: Hematocrit 41.1 % (37.5-50.1); Hemoglobin 13.7 g/dL (12.9-16.9); Mean Corpuscular HGB Conc 33.3 g/dL (31.6-35.5); Mean Corpuscular Hemoglobin 30.2 pg (28.0-33.3); Mean Corpuscular Volume 90.5 fL (83.0-100.0); Mean Platelet Volume 10.8 fL (9.4-12.4); Platelet Count 150 K/mcL (140-400); Red Blood Count 4.54 M/mcL (4.19-5.50); Red Cell Distribution Width 14.2 % (11.5-14.5); White Blood Count 8.1 K/mcL (4.3-11.1)
[2021-04-18 13:18] LABS: Activated Partial Thrombo Time 49.2 Seconds (26.0-36.0)
[2021-04-18] MEDS ORDERED: 0.9 % Sodium Chloride 1,000 ML IV ONE (13:24)
[2021-04-18] MEDS ORDERED: Isovue-370 500 ML BOTTLE IVP ONE (13:25)
[2021-04-18 13:27] LABS: Alanine Aminotransferase 26 Units/L (7-52); Albumin 3.3 g/dL (3.5-5.7); Alkaline Phosphatase 46 Units/L (34-104); Aspartate Amino Transferase 29 Units/L (13-39); BUN/Creatinine Ratio 22 (6-26); Bilirubin,Direct 0.3 mg/dL (0.0-0.2); Bilirubin,Indirect 0.5 mg/dL (0.0-1.0); Bilirubin,Total 0.8 mg/dL (0.3-1.0); Blood Urea Nitrogen 26 mg/dL (8-23); C-Reactive Protein 281 mg/L (Less than 10); Calcium 8.5 mg/dL (8.6-10.3); Carbon Dioxide 21 mEq/L (23-29); Chloride 104 mEq/L (98-107); Globulin 3.4 g/dL (2.4-3.5); Glucose 132 mg/dL (70-105); Lactate Dehydrogenase 273 Units/L (140-271); Magnesium 1.5 mg/dL (1.6-2.6); Osmolality,Calculated 291 (280-300); Phosphorous 1.8 mg/dL (2.7-4.5); Potassium 3.5 mEq/L (3.5-5.1); Sodium 137 mEq/L (136-145); Total Protein 6.7 g/dL (6.4-8.9); Troponin I < 0.03 ng/mL (< 0.04); eGFR For African Americans > 60 (> 60); eGFR For Non-African Americans > 60 (> 60)
[2021-04-18 13:36] LABS: Ferritin 418 ng/mL (20-250)
[2021-04-18 14:09] LABS: Prothrombin Time 86.5 Seconds (9.4-12.1)
[2021-04-18 14:10] LABS: INR 7.9
[2021-04-18 14:23] LABS: Monocytes # 0.2 K/mcL (0.0-1.3); Platelet Estimate Normal (Normal)
[2021-04-18 14:24] LABS: Reactive Lymphocytes Present (Not Present)
[2021-04-18] MEDS ORDERED: Azithromycin 500 MG in 0.9 % Sodium Chloride 250 ML IVPB ONE (14:52)
[2021-04-18] MEDS ORDERED: cefTRIAXone 1,000 MG in 0.9 % Sodium Chloride Mini Bag 100 ML IVPB ONE (14:52)
[2021-04-18] MEDS ORDERED: Melatonin 3 MG TABLET PO PRN (16:19)
[2021-04-18] MEDS ORDERED: Acetaminophen 325 MG TABLET PO PRN (16:19)
[2021-04-18] MEDS ORDERED: *HR* HYDROcodone/Acet 5/325 mg TABLET PO PRN (16:19)
[2021-04-18] MEDS ORDERED: Naloxone 0.4 MG/ML INJ IVP PRN (16:19)
[2021-04-18] MEDS ORDERED: Ondansetron 4 MG/2 ML VIAL IVP PRN (16:19)
[2021-04-18] MEDS ORDERED: Saline Nasal Spray 44 ML BOTTLE NS PRN (16:22)
[2021-04-18] MEDS ORDERED: Saliva Stimulant 44.3ml BOTTLE PO PRN (16:22)
[2021-04-18] MEDS ORDERED: Chloraseptic Spray 177 ML BOTTLE MM PRN (16:22)
[2021-04-18] MEDS ORDERED: Artificial Tears SOLN 15 ML BOTTLE BOTH EYES PRN (16:22)
[2021-04-18] MEDS: Calcium Gluconate 1gm/50mL 1 GM/50 ML BAG IVPB SCH ×2 (16:54→18:45)
[2021-04-18] MEDS ORDERED: cefTRIAXone 1,000 MG in 0.9 % Sodium Chloride Mini Bag 100 ML IVPB SCH (17:00)
[2021-04-18] MEDS: Cholecalciferol (D-3) 1,000 UNIT (25MCG) TABLET PO SCH (20:08)
[2021-04-18] MEDS: Chlorhexidine Rinse 15 ML MOUTHWASH MM SCH (20:09)
[2021-04-18] MEDS ORDERED: Metoprolol XL (24 HR) Succ 25 MG TAB.ER.24H PO SCH (21:00)
[2021-04-18 21:22] LABS: Adenovirus Not Detected (Not Detect); Coronavirus 229E Not Detected (Not Detect)
[2021-04-18 21:23] LABS: Bordetella Pertussis Not Detected (Not Detect); Chlamydophila pneumoniae Not Detected (Not Detect); Coronavirus HKU1 Not Detected (Not Detect); Coronavirus NL63 Not Detected (Not Detect); Coronavirus OC43 Not Detected (Not Detect); Human Metapneumovirus Not Detected (Not Detect); Human Rhinovirus/Enterovirus Not Detected (Not Detect); Influenza A Subtype 2009 H1 Not Detected (Not Detect); Influenza B Not Detected (Not Detect); Mycoplasma pneumoniae Not Detected (Not Detect); Parainfluenza Virus 1 Not Detected (Not Detect); Parainfluenza Virus 2 Not Detected (Not Detect); Parainfluenza Virus 3 Not Detected (Not Detect); Parainfluenza Virus 4 Not Detected (Not Detect); Respiratory Syncytial Virus Not Detected (Not Detect); SARS-CoV-2 Not Detected (Not Detect)
[2021-04-18] MEDS ORDERED: Nystatin POWDER 30 GM BOTTLE TP PRN (22:43)
[2021-04-18] MEDS: Ipratropium 1 PUFF INHALER IH SCH ×3 (22:45→22:49)
[2021-04-18] MEDS: Levalbuterol 1 PUFF INHALER IH SCH ×2 (22:46→22:50)
[2021-04-18] MEDS: Budesonide/Formoterol 160/4.5 1 PUFF INH IH SCH (22:46)
[2021-04-18] MEDS ORDERED: *HR* Dextrose 50 % in Water (Vial) 50 ML VIAL IVP PRN (23:40)
[2021-04-18] MEDS ORDERED: D5% in Water 1,000 ML IVC PRN (23:40)
[2021-04-18] MEDS ORDERED: Dextrose Gel 15 GM/37.5 ML TUBE PO PRN ×2 (23:40)
[2021-04-19] MEDS: Levalbuterol 1 PUFF INHALER IH SCH ×5 (05:01→20:23)
[2021-04-19] MEDS: Ipratropium 1 PUFF INHALER IH SCH ×2 (05:01→07:53)
[2021-04-19 05:31] LABS: Basophils % 0.4 %; Hematocrit 38.6 % (37.5-50.1); Hemoglobin 12.5 g/dL (12.9-16.9); Immature Granulocytes % 0.6 % (0-4); Lymphocytes # 0.6 K/mcL (0.6-4.6); Lymphocytes % 7.7 %; Mean Corpuscular HGB Conc 32.4 g/dL (31.6-35.5); Mean Corpuscular Hemoglobin 29.9 pg (28.0-33.3); Mean Corpuscular Volume 92.3 fL (83.0-100.0); Mean Platelet Volume 11.8 fL (9.4-12.4); Monocytes # 0.5 K/mcL (0.0-1.3); Monocytes % 6.3 %; Platelet Count 172 K/mcL (140-400); Red Blood Count 4.18 M/mcL (4.19-5.50); Red Cell Distribution Width 14.6 % (11.5-14.5); White Blood Count 8.2 K/mcL (4.3-11.1)
[2021-04-19 05:44] LABS: INR 8.9; Prothrombin Time 96.9 Seconds (9.4-12.1)
[2021-04-19 06:20] LABS: Platelet Estimate Normal (Normal)
[2021-04-19] MEDS: MethylPREDNISolone 40 MG/ML VIAL IVP SCH ×3 (06:20→23:00)
[2021-04-19] MEDS ORDERED: Acetylcysteine 10% 2 ML INHSOL IH SCH (07:00)
[2021-04-19] MEDS: Budesonide/Formoterol 160/4.5 1 PUFF INH IH SCH (07:55)
[2021-04-19] MEDS: Insulin LISPRO 300 UNITS/3 ML VIAL SUBQ SCH ×3 (08:56→18:02)
[2021-04-19] MEDS ORDERED: Doxycycline 100 MG CAPSULE PO SCH (09:00)
[2021-04-19] MEDS ORDERED: Furosemide 20 MG/2 ML VIAL IVP SCH (09:00)
[2021-04-19] MEDS: Cholecalciferol (D-3) 1,000 UNIT (25MCG) TABLET PO SCH (09:12)
[2021-04-19] MEDS: Pregabalin 50 MG CAPSULE PO SCH ×3 (09:12→19:47)
[2021-04-19] MEDS: Multivit/Ca/Min/Fe/FA 1 TAB TABLET PO SCH ×2 (09:12→19:45)
[2021-04-19] MEDS: Chlorhexidine Rinse 15 ML MOUTHWASH MM SCH ×2 (09:12→19:47)
[2021-04-19] MEDS: levoFLOXacin 750 MG TABLET PO SCH (09:13)
[2021-04-19] MEDS: Topiramate 25 MG TABLET PO SCH ×2 (09:13→19:47)
[2021-04-19] MEDS: Metoprolol XL (24 HR) Succ 25 MG TAB.ER.24H PO SCH ×2 (09:14→19:47)
[2021-04-19] MEDS: Albumin 25% 25gram/100mL 25 GM/100 ML IV.SOLN IVPB SCH ×2 (09:14→19:45)
[2021-04-19 11:05] LABS: Albumin 3.1 g/dL (3.5-5.7); Albumin/Globulin Ratio 0.9 (1.1-2.2); Alkaline Phosphatase 48 Units/L (34-104); Aspartate Amino Transferase 24 Units/L (13-39); Bilirubin,Total 0.5 mg/dL (0.3-1.0); C-Reactive Protein > 300 mg/L (Less than 10); Calcium 8.4 mg/dL (8.6-10.3); Chloride 106 mEq/L (98-107); Ferritin 455 ng/mL (20-250); Globulin 3.3 g/dL (2.4-3.5); Glucose 152 mg/dL (70-105); Lactate Dehydrogenase 290 Units/L (140-271); Phosphorous 1.9 mg/dL (2.7-4.5); Sodium 137 mEq/L (136-145); Total Protein 6.4 g/dL (6.4-8.9)
[2021-04-19 12:53] LABS: Alanine Aminotransferase 21 Units/L (7-52); BUN/Creatinine Ratio 30 (6-26); Blood Urea Nitrogen 28 mg/dL (8-23); Carbon Dioxide 22 mEq/L (23-29); Magnesium 2.7 mg/dL (1.6-2.6); Osmolality,Calculated 292 (280-300); eGFR For African Americans > 60 (> 60); eGFR For Non-African Americans > 60 (> 60)
[2021-04-19] MEDS: Vancomycin 1,500 MG/265 ML IV.SOLN IVPB SCH (14:26)
[2021-04-19] MEDS: Acetylcysteine 10% 2 ML INHSOL IH SCH ×2 (16:37→21:23)
[2021-04-20] MEDS: Vancomycin 1,500 MG/265 ML IV.SOLN IVPB SCH ×2 (00:23→12:14)
[2021-04-20] MEDS: Levalbuterol 1 PUFF INHALER IH SCH ×7 (00:28→22:48)
[2021-04-20] MEDS: Acetylcysteine 10% 2 ML INHSOL IH SCH ×4 (03:01→22:46)
[2021-04-20] MEDS: MethylPREDNISolone 40 MG/ML VIAL IVP SCH ×3 (05:15→21:36)
[2021-04-20 06:29] LABS: Hematocrit 37.9 % (37.5-50.1); Hemoglobin 12.4 g/dL (12.9-16.9); Mean Corpuscular HGB Conc 32.7 g/dL (31.6-35.5); Mean Corpuscular Hemoglobin 29.8 pg (28.0-33.3); Mean Corpuscular Volume 91.1 fL (83.0-100.0); Mean Platelet Volume 11.4 fL (9.4-12.4); Nucleated Red Blood Cells 0.2 /100 WBC (0); Platelet Count 186 K/mcL (140-400); Red Blood Count 4.16 M/mcL (4.19-5.50); Red Cell Distribution Width 14.3 % (11.5-14.5); White Blood Count 8.9 K/mcL (4.3-11.1)
[2021-04-20 07:01] LABS: INR 4.8; Prothrombin Time 53.1 Seconds (9.4-12.1)
[2021-04-20 07:04] LABS: Alanine Aminotransferase 24 Units/L (7-52); Albumin 3.4 g/dL (3.5-5.7); Albumin/Globulin Ratio 1.1 (1.1-2.2); Alkaline Phosphatase 56 Units/L (34-104); Aspartate Amino Transferase 27 Units/L (13-39); BUN/Creatinine Ratio 34 (6-26); Bilirubin,Total 0.5 mg/dL (0.3-1.0); Blood Urea Nitrogen 31 mg/dL (8-23); Calcium 8.7 mg/dL (8.6-10.3); Carbon Dioxide 22 mEq/L (23-29); Chloride 104 mEq/L (98-107); Ferritin 483 ng/mL (20-250); Globulin 3.1 g/dL (2.4-3.5); Glucose 319 mg/dL (70-105); Lactate Dehydrogenase 260 Units/L (140-271); Osmolality,Calculated 299 (280-300); Potassium 3.5 mEq/L (3.5-5.1); Sodium 135 mEq/L (136-145); Total Protein 6.5 g/dL (6.4-8.9); eGFR For African Americans > 60 (> 60); eGFR For Non-African Americans > 60 (> 60)
[2021-04-20] MEDS: Cholecalciferol (D-3) 1,000 UNIT (25MCG) TABLET PO SCH (08:02)
[2021-04-20] MEDS: Chlorhexidine Rinse 15 ML MOUTHWASH MM SCH ×2 (08:02→21:36)
[2021-04-20] MEDS: Metoprolol XL (24 HR) Succ 25 MG TAB.ER.24H PO SCH ×2 (08:03→21:36)
[2021-04-20] MEDS: Pregabalin 50 MG CAPSULE PO SCH ×3 (08:03→21:35)
[2021-04-20] MEDS: Topiramate 25 MG TABLET PO SCH ×2 (08:03→21:36)
[2021-04-20] MEDS: Multivit/Ca/Min/Fe/FA 1 TAB TABLET PO SCH (08:03)
[2021-04-20] MEDS: levoFLOXacin 750 MG TABLET PO SCH (08:03)
[2021-04-20] MEDS: Albumin 25% 25gram/100mL 25 GM/100 ML IV.SOLN IVPB SCH (08:04)
[2021-04-20] MEDS: Insulin LISPRO 300 UNITS/3 ML VIAL SUBQ SCH ×3 (08:05→17:25)
[2021-04-20 08:31] LABS: C-Reactive Protein 167 mg/L (Less than 10)
[2021-04-20 10:07] LABS: Lymphocytes # 0.5 K/mcL (0.6-4.6); Monocytes # 0.9 K/mcL (0.0-1.3); Neutrophils # 7.3 K/mcL (1.6-8.9); Platelet Estimate Normal (Normal)
[2021-04-20] MEDS: Furosemide 40 MG TABLET PO SCH (10:19)
[2021-04-20] MEDS ORDERED: Sennosides/Docusate Sodium TABLET PO PRN (10:44)
[2021-04-20] MEDS: Ipratropium/Albuterol Neb 3 ML IH PRN ×2 (16:30→22:46)
[2021-04-21 01:17] LABS: Basophils # 0.1 K/mcL (0.0-0.2); Basophils % 0.9 %; Hematocrit 37.9 % (37.5-50.1); Hemoglobin 12.2 g/dL (12.9-16.9); Immature Granulocytes % 5.3 % (0-4); Lymphocytes # 0.5 K/mcL (0.6-4.6); Lymphocytes % 6.6 %; Mean Corpuscular HGB Conc 32.2 g/dL (31.6-35.5); Mean Corpuscular Hemoglobin 29.5 pg (28.0-33.3); Mean Corpuscular Volume 91.8 fL (83.0-100.0); Mean Platelet Volume 10.5 fL (9.4-12.4); Monocytes # 0.8 K/mcL (0.0-1.3); Monocytes % 10.5 %; Nucleated Red Blood Cells 0.4 /100 WBC (0); Platelet Count 278 K/mcL (140-400); Red Blood Count 4.13 M/mcL (4.19-5.50); Red Cell Distribution Width 14.5 % (11.5-14.5); Segmented Neutrophils % 76.7 %; White Blood Count 7.8 K/mcL (4.3-11.1)
[2021-04-21 01:23] LABS: INR 5.3; Prothrombin Time 58.4 Seconds (9.4-12.1)
[2021-04-21 01:31] LABS: Alanine Aminotransferase 29 Units/L (7-52); Albumin 3.5 g/dL (3.5-5.7); Albumin/Globulin Ratio 1.2 (1.1-2.2); Alkaline Phosphatase 61 Units/L (34-104); Aspartate Amino Transferase 32 Units/L (13-39); BUN/Creatinine Ratio 29 (6-26); Bilirubin,Total 0.4 mg/dL (0.3-1.0); Blood Urea Nitrogen 29 mg/dL (8-23); Calcium 8.7 mg/dL (8.6-10.3); Carbon Dioxide 19 mEq/L (23-29); Chloride 107 mEq/L (98-107); Glucose 367 mg/dL (70-105); Osmolality,Calculated 305 (280-300); Potassium 3.7 mEq/L (3.5-5.1); Sodium 137 mEq/L (136-145); Total Protein 6.5 g/dL (6.4-8.9); eGFR For African Americans > 60 (> 60); eGFR For Non-African Americans > 60 (> 60)
[2021-04-21 01:32] LABS: C-Reactive Protein 80 mg/L (Less than 10); Lactate Dehydrogenase 252 Units/L (140-271)
[2021-04-21] MEDS: Vancomycin 1,500 MG/265 ML IV.SOLN IVPB SCH (01:43)
[2021-04-21 01:50] LABS: Ferritin 503 ng/mL (20-250)
[2021-04-21] MEDS: Vancomycin 1,750 MG/517.5 ML IV.SOLN IVPB SCH ×2 (01:54→14:21)
[2021-04-21] MEDS: Acetylcysteine 10% 2 ML INHSOL IH SCH ×3 (03:43→16:17)
[2021-04-21] MEDS: Levalbuterol 1 PUFF INHALER IH SCH ×6 (03:44→23:57)
[2021-04-21] MEDS: MethylPREDNISolone 40 MG/ML VIAL IVP SCH ×3 (05:00→22:15)
[2021-04-21] MEDS: Pregabalin 50 MG CAPSULE PO SCH ×3 (08:08→22:16)
[2021-04-21] MEDS: Cholecalciferol (D-3) 1,000 UNIT (25MCG) TABLET PO SCH (08:08)
[2021-04-21] MEDS: Albumin 25% 25gram/100mL 25 GM/100 ML IV.SOLN IVPB SCH (08:09)
[2021-04-21] MEDS: Insulin LISPRO 300 UNITS/3 ML VIAL SUBQ SCH ×3 (08:09→17:31)
[2021-04-21] MEDS: levoFLOXacin 750 MG TABLET PO SCH (08:09)
[2021-04-21] MEDS: Metoprolol XL (24 HR) Succ 25 MG TAB.ER.24H PO SCH ×2 (08:09→22:16)
[2021-04-21] MEDS: Multivit/Ca/Min/Fe/FA 1 TAB TABLET PO SCH (08:09)
[2021-04-21] MEDS: Furosemide 40 MG TABLET PO SCH (08:09)
[2021-04-21] MEDS: Topiramate 25 MG TABLET PO SCH ×2 (08:09→22:16)
[2021-04-21] MEDS: Chlorhexidine Rinse 15 ML MOUTHWASH MM SCH ×2 (08:09→22:15)
[2021-04-21 12:12] LABS: Bacteria,Urine Few per hpf (None-Few); Bilirubin,Urine Negative (Negative); Blood,Urine Trace (Negative); Clarity,Urine Clear (Clear); Color,Urine Light-Yellow (Yellow); Glucose,Urine (UA) >=1000 mg/dL (Normal); Ketones,Urine Negative (Negative); Leukocyte Esterase,Urine Negative (Negative); Nitrite,Urine Negative (Negative); Protein,Urine Trace mg/dL (Neg-Trace); RBC,Urine 15-30 per hpf (0-3); Specific Gravity,Urine 1.025 (1.010-1.025); WBC,Urine 0-3 per hpf (0-3)
[2021-04-21] MEDS ORDERED: Insulin LISPRO 300 UNITS/3 ML VIAL SUBQ SCH (22:15)
[2021-04-22] MEDS: Vancomycin 1,750 MG/517.5 ML IV.SOLN IVPB SCH ×2 (03:20→15:03)
[2021-04-22] MEDS: MethylPREDNISolone 40 MG/ML VIAL IVP SCH ×2 (05:01→12:47)
[2021-04-22] MEDS: Levalbuterol 1 PUFF INHALER IH SCH ×6 (05:15→23:56)
[2021-04-22 05:33] LABS: Basophils # 0.1 K/mcL (0.0-0.2); Basophils % 0.8 %; Hematocrit 38.1 % (37.5-50.1); Hemoglobin 12.5 g/dL (12.9-16.9); Immature Granulocytes % 6.8 % (0-4); Lymphocytes # 0.8 K/mcL (0.6-4.6); Lymphocytes % 6.8 %; Mean Corpuscular HGB Conc 32.8 g/dL (31.6-35.5); Mean Corpuscular Volume 91.4 fL (83.0-100.0); Mean Platelet Volume 10.2 fL (9.4-12.4); Monocytes # 0.9 K/mcL (0.0-1.3); Monocytes % 8.1 %; Nucleated Red Blood Cells 0.2 /100 WBC (0); Platelet Count 326 K/mcL (140-400); Red Blood Count 4.17 M/mcL (4.19-5.50); Red Cell Distribution Width 14.5 % (11.5-14.5); Segmented Neutrophils % 77.5 %; White Blood Count 11.6 K/mcL (4.3-11.1)
[2021-04-22 05:46] LABS: INR 5.2; Prothrombin Time 56.8 Seconds (9.4-12.1)
[2021-04-22 05:51] LABS: BUN/Creatinine Ratio 32 (6-26); Blood Urea Nitrogen 28 mg/dL (8-23); Calcium 8.8 mg/dL (8.6-10.3); Carbon Dioxide 20 mEq/L (23-29); Chloride 111 mEq/L (98-107); Glucose 207 mg/dL (70-105); Osmolality,Calculated 300 (280-300); Potassium 4.3 mEq/L (3.5-5.1); Sodium 139 mEq/L (136-145); eGFR For African Americans > 60 (> 60); eGFR For Non-African Americans > 60 (> 60)
[2021-04-22 06:18] LABS: Platelet Estimate Normal (Normal); Toxic Granulation Present (Not Present)
[2021-04-22] MEDS ORDERED: *HR* Phytonadione 5 MG TABLET PO ONE (08:28)
[2021-04-22] MEDS: Metoprolol XL (24 HR) Succ 25 MG TAB.ER.24H PO SCH (10:07)
[2021-04-22] MEDS: Cholecalciferol (D-3) 1,000 UNIT (25MCG) TABLET PO SCH (10:07)
[2021-04-22] MEDS: Furosemide 40 MG TABLET PO SCH (10:07)
[2021-04-22] MEDS: Pregabalin 50 MG CAPSULE PO SCH ×2 (10:07→15:42)
[2021-04-22] MEDS: levoFLOXacin 750 MG TABLET PO SCH (10:07)
[2021-04-22] MEDS: Multivit/Ca/Min/Fe/FA 1 TAB TABLET PO SCH (10:07)
[2021-04-22] MEDS: Topiramate 25 MG TABLET PO SCH (10:08)
[2021-04-22] MEDS: Albumin 25% 25gram/100mL 25 GM/100 ML IV.SOLN IVPB SCH (10:08)
[2021-04-22] MEDS: Insulin LISPRO 300 UNITS/3 ML VIAL SUBQ SCH ×2 (10:08→12:48)
[2021-04-22 11:24] LABS: C-Reactive Protein 34 mg/L (Less than 10)
[2021-04-22 12:26] VITALS: BP 156/90; PULSE 91; TEMP 98.3
[2021-04-22] MEDS: Chlorhexidine Rinse 15 ML MOUTHWASH MM SCH (12:47)
[2021-04-22] MEDS ORDERED: FLU Vac QV 21-22 (6Month+)/PF 0.5 ML SYRINGE IM ONE (14:53)
[2021-04-22 15:55] VITALS: O2SAT 93
== END 2021-04-22 18:55 | disposition home health service (06) | DRG 871 ==
LOC: EMEROOARM 12:15 → 3NENU 12:15 → SUATTDRO 16:08 → 3NENU 17:24
PROVIDERS: ADMIT Internal Medicine; ATTEND Internal Medicine

== ENCOUNTER 2021-05-05 18:59 | Observation (INO) ==
[2021-05-05] MEDS ORDERED: Isovue-370 500 ML BOTTLE IVP ONE (19:16)
[2021-05-05 20:15] LABS: Basophils % 0.3 %; Eosinophils # 0.2 K/mcL (0.0-0.6); Eosinophils % 2.9 %; Hematocrit 43.7 % (37.5-50.1); Hemoglobin 13.8 g/dL (12.9-16.9); Immature Granulocytes % 0.4 % (0-4); Lymphocytes # 1.5 K/mcL (0.6-4.6); Lymphocytes % 20.2 %; Mean Corpuscular HGB Conc 31.6 g/dL (31.6-35.5); Mean Corpuscular Hemoglobin 29.5 pg (28.0-33.3); Mean Corpuscular Volume 93.4 fL (83.0-100.0); Mean Platelet Volume 9.4 fL (9.4-12.4); Monocytes # 0.8 K/mcL (0.0-1.3); Neutrophils # 4.9 K/mcL (1.6-8.9); Platelet Count 205 K/mcL (140-400); Red Blood Count 4.68 M/mcL (4.19-5.50); Red Cell Distribution Width 14.6 % (11.5-14.5); Segmented Neutrophils % 65.2 %; White Blood Count 7.5 K/mcL (4.3-11.1)
[2021-05-05 20:23] LABS: Prothrombin Time 21.7 Seconds (9.4-12.1)
[2021-05-05 20:25] LABS: Activated Partial Thrombo Time 32.5 Seconds (26.0-36.0)
[2021-05-05 20:32] LABS: BUN/Creatinine Ratio 14 (6-26); Blood Urea Nitrogen 14 mg/dL (8-23); Calcium 9.3 mg/dL (8.6-10.3); Carbon Dioxide 25 mEq/L (23-29); Chloride 102 mEq/L (98-107); Glucose 109 mg/dL (70-105); Osmolality,Calculated 281 (280-300); Sodium 135 mEq/L (136-145); Troponin I < 0.03 ng/mL (< 0.04); eGFR For African Americans > 60 (> 60); eGFR For Non-African Americans > 60 (> 60)
[2021-05-05] MEDS ORDERED: Morphine Sulfate 2 MG/ML SYRINGE IVP ONE (21:33)
[2021-05-05] MEDS ORDERED: *HR* HYDROmorphone (PF) 1 MG/ML SYRINGE IVP ONE ×2 (21:35→23:28)
[2021-05-05] MEDS ORDERED: 0.9 % Sodium Chloride 1,000 ML IV ONE (22:30)
[2021-05-05] MEDS ORDERED: levoFLOXacin 750 MG/150 ML 750 MG/150 ML BAG IVPB ONE (23:20)
[2021-05-06] MEDS ORDERED: 0.9 % Sodium Chloride 1,000 ML IV ONE (00:20)
[2021-05-06] MEDS ORDERED: Naloxone 0.4 MG/ML INJ IVP PRN (00:33)
[2021-05-06] MEDS ORDERED: Melatonin 3 MG TABLET PO PRN (00:33)
[2021-05-06] MEDS ORDERED: *HR* Metoprolol 5 MG/5 ML VIAL IVP ONE (02:09)
[2021-05-06 02:21] LABS: Adenovirus Not Detected (Not Detect); Bordetella Pertussis Not Detected (Not Detect); Chlamydophila pneumoniae Not Detected (Not Detect); Coronavirus 229E Not Detected (Not Detect); Coronavirus HKU1 Not Detected (Not Detect); Coronavirus NL63 Not Detected (Not Detect); Coronavirus OC43 Not Detected (Not Detect); Human Metapneumovirus Not Detected (Not Detect); Human Rhinovirus/Enterovirus Not Detected (Not Detect); Influenza A Subtype 2009 H1 Not Detected (Not Detect); Influenza B Not Detected (Not Detect); Mycoplasma pneumoniae Not Detected (Not Detect); Parainfluenza Virus 1 Not Detected (Not Detect); Parainfluenza Virus 2 Not Detected (Not Detect); Parainfluenza Virus 3 Not Detected (Not Detect); Parainfluenza Virus 4 Not Detected (Not Detect); Respiratory Syncytial Virus Not Detected (Not Detect); SARS-CoV-2 Not Detected (Not Detect)
[2021-05-06] MEDS ORDERED: Acetaminophen 325 MG TABLET PO PRN (02:57)
[2021-05-06] MEDS ORDERED: Furosemide 20 MG/2 ML VIAL IVP ONE (03:00)
[2021-05-06] MEDS: Ipratropium 1 PUFF INHALER IH SCH ×3 (05:39→15:57)
[2021-05-06 05:47] LABS: Hematocrit 42.6 % (37.5-50.1); Hemoglobin 13.3 g/dL (12.9-16.9); Mean Corpuscular HGB Conc 31.2 g/dL (31.6-35.5); Mean Corpuscular Hemoglobin 29.5 pg (28.0-33.3); Mean Corpuscular Volume 94.5 fL (83.0-100.0); Mean Platelet Volume 9.6 fL (9.4-12.4); Platelet Count 190 K/mcL (140-400); Red Blood Count 4.51 M/mcL (4.19-5.50); Red Cell Distribution Width 14.6 % (11.5-14.5); White Blood Count 5.3 K/mcL (4.3-11.1)
[2021-05-06 05:57] LABS: INR 2.1; Prothrombin Time 22.8 Seconds (9.4-12.1)
[2021-05-06 06:11] LABS: Alanine Aminotransferase 25 Units/L (7-52); Albumin 3.6 g/dL (3.5-5.7); Albumin/Globulin Ratio 1.2 (1.1-2.2); Alkaline Phosphatase 67 Units/L (34-104); Aspartate Amino Transferase 17 Units/L (13-39); BUN/Creatinine Ratio 13 (6-26); Bilirubin,Total 0.5 mg/dL (0.3-1.0); Blood Urea Nitrogen 13 mg/dL (8-23); Calcium 8.8 mg/dL (8.6-10.3); Carbon Dioxide 22 mEq/L (23-29); Chloride 104 mEq/L (98-107); Globulin 3.1 g/dL (2.4-3.5); Glucose 255 mg/dL (70-105); Osmolality,Calculated 289 (280-300); Potassium 4.3 mEq/L (3.5-5.1); Sodium 135 mEq/L (136-145); Total Protein 6.7 g/dL (6.4-8.9); eGFR For African Americans > 60 (> 60); eGFR For Non-African Americans > 60 (> 60)
[2021-05-06 06:27] LABS: Ferritin 253 ng/mL (20-250)
[2021-05-06 07:06] VITALS: O2SAT 92
[2021-05-06] MEDS ORDERED: MethylPREDNISolone 40 MG/ML VIAL IVP SCH (08:00)
[2021-05-06] MEDS ORDERED: Cefepime HCl 2,000 MG in Water for inj. (sterile) 20 ML IVP SCH (08:00)
[2021-05-06] MEDS ORDERED: Metoprolol XL (24 HR) Succ 25 MG TAB.ER.24H PO SCH (09:00)
[2021-05-06] MEDS ORDERED: Azithromycin 500 MG in 0.9 % Sodium Chloride 250 ML IVPB SCH (09:00)
[2021-05-06 09:37] LABS: C-Reactive Protein 90 mg/L (Less than 10)
[2021-05-06] MEDS ORDERED: Budesonide/Formoterol 160/4.5 1 PUFF INH IH SCH (10:00)
[2021-05-06 10:55] VITALS: BP 111/72; PULSE 102; TEMP 97.6
[2021-05-06] MEDS ORDERED: *HR* OxyCODONE/APAP 5/325 TABLET PO PRN (11:22)
[2021-05-06] MEDS ORDERED: *HR* Warfarin 2.5 MG TABLET PO ONE (18:00)
[2021-05-06] MEDS ORDERED: Warfarin perPT PO PRN (18:00)
== END 2021-05-06 16:01 | disposition home or self-care (01) ==
LOC: EMEROOARM 18:59 → 3BNU 18:59
PROVIDERS: ADMIT Internal Medicine; ATTEND Internal Medicine